=== PATIENT | male | born 1975 | race Two or more races ===

== ENCOUNTER 2018-03-30 11:57 | Inpatient (IN) | payer OTHER ==
[~2018-03-30] VITALS: Ht 170.2 cm; Wt 73.1 kg
[2018-03-30 12:12] VITALS: Ht 170.2 cm; Wt 73.1 kg
[2018-03-30 13:15] LABS: PLATELET COUNT 190 x10^3mcL (130-400)
[2018-03-30 13:16] LABS: RED CELL DISTRIBUTION WIDTH 15.9 % (11.5-14.5)
[2018-03-30 13:39] LABS: BAND NEUTROPHIL 1 % (0-10); BASOPHIL 0 % (0-2); MONOCYTE 10 % (0-7); SEGMENTED NEUTROPHILS 68 % (37-75); rbc morphology (normal/abnorm) ABNORMAL (NORMAL); tear drop cell (dacryocyte) 1+
[2018-03-30 13:41] LABS: target cell (codocyte) 1+
[2018-03-30 13:42] LABS: CARBON DIOXIDE 29.1 mmol/L (21-32); CHLORIDE SERUM 102 mmol/L (98-107); CREATININE SERUM 1.1 mg/dL (0.7-1.3); GFR1 > 60 mL/min; GLUCOSE SERUM 89 mg/dL (74-106); PLATELET MORPHOLOGY LARGE PLATELET SEEN; POTASSIUM SERUM 3.4 mmol/L (3.5-5.1); SODIUM SERUM 136 mmol/L (136-145)
[2018-03-30 13:54] LABS: ALKALINE PHOSPHATASE 423 U/L (46-116); ALT/SGPT 160 U/L (16-63); AMYLASE 45 U/L (25-115); AST/SGOT 197 U/L (15-37); BILIRUBIN TOTAL 7.4 mg/dL (0.20-1.00); LIPASE 88 IU/L (73-393)
[2018-03-30 14:08] LABS: ALBUMIN 1.9 g/dL (3.4-5.0); TOTAL PROTEIN, SERUM 5.5 g/dL (6.4-8.2)
[2018-03-30 15:43] LABS: UA SPECIFIC GRAVITY 1.025 (1.005-1.035); microscopic required? YES; urine erythrocyte NEGATIVE (NEGATIVE)
[2018-03-30 15:52] LABS: AMPHETAMINE QUAL UR NONE DETECTED (See below)
[2018-03-30 16:18] VITALS: BP 118/71
[2018-03-30 18:00] LABS: MAGNESIUM 2.2 mg/dL (1.8-2.4); PHOSPHOROUS 2.1 mg/dL (2.5-4.9)
[2018-03-30 18:06] LABS: CHOLESTEROL/HDL RATIO 24.1
[2018-03-30 20:38] VITALS: BP 108/72
[2018-03-31 05:05] VITALS: BP 102/62
[2018-03-31 06:22] LABS: PLATELET COUNT 175 x10^3mcL (130-400)
[2018-03-31 06:47] LABS: ALBUMIN 1.7 g/dL (3.4-5.0); ALKALINE PHOSPHATASE 345 U/L (46-116); ALT/SGPT 138 U/L (16-63); AST/SGOT 163 U/L (15-37); CALCIUM 7.7 mg/dL (8.5-10.1); CARBON DIOXIDE 29.8 mmol/L (21-32); CHLORIDE SERUM 102 mmol/L (98-107); GFR1 > 60 mL/min; GLUCOSE SERUM 83 mg/dL (74-106); PHOSPHOROUS 2.2 mg/dL (2.5-4.9); POTASSIUM SERUM 4.4 mmol/L (3.5-5.1); SODIUM SERUM 136 mmol/L (136-145); TOTAL PROTEIN, SERUM 5.1 g/dL (6.4-8.2)
[2018-03-31 07:30] LABS: RED CELL DISTRIBUTION WIDTH 16.2 % (11.5-14.5)
[2018-03-31 09:43] VITALS: BP 96/58
[2018-03-31 11:21] LABS: ATYPICAL LYMPH 9 %; BAND NEUTROPHIL 0 % (0-10); BASOPHIL 1 % (0-2); MONOCYTE 14 % (0-7); SEGMENTED NEUTROPHILS 62 % (37-75)
[2018-03-31 11:23] LABS: PLATELET MORPHOLOGY PLATELETS DECREASED; rbc morphology (normal/abnorm) ABNORMAL (NORMAL); target cell (codocyte) 2+
[2018-03-31 13:15] VITALS: BP 106/68
[2018-03-31 17:40] VITALS: BP 111/55
[2018-03-31 20:43] VITALS: BP 109/66
[2018-04-01 05:33] VITALS: BP 96/55
[2018-04-01 06:39] LABS: ALKALINE PHOSPHATASE 311 U/L (46-116); ALT/SGPT 105 U/L (16-63); AST/SGOT 148 U/L (15-37); BILIRUBIN TOTAL 4.05 mg/dL (0.20-1.00); CALCIUM 8.1 mg/dL (8.5-10.1); CARBON DIOXIDE 30.3 mmol/L (21-32); CHLORIDE SERUM 103 mmol/L (98-107); CREATININE SERUM 0.9 mg/dL (0.7-1.3); GFR1 > 60 mL/min; GLUCOSE SERUM 88 mg/dL (74-106); POTASSIUM SERUM 4.6 mmol/L (3.5-5.1); SODIUM SERUM 135 mmol/L (136-145)
[2018-04-01 06:44] LABS: TOTAL PROTEIN, SERUM 5.6 g/dL (6.4-8.2)
[2018-04-01 06:49] LABS: PHOSPHOROUS 2.8 mg/dL (2.5-4.9)
[2018-04-01 07:25] LABS: PLATELET COUNT 183 x10^3mcL (130-400)
[2018-04-01] MEDS ORDERED: ALD50 PO (08:07)
[2018-04-01] MEDS ORDERED: FUROSEMIDE40 MG PO (08:08)
[2018-04-01] MEDS ORDERED: ATIVAN0.5 M1 PO (08:10)
[2018-04-01 08:28] LABS: RED CELL DISTRIBUTION WIDTH 16.1 % (11.5-14.5)
[2018-04-01 09:06] VITALS: BP 93/60
[2018-04-01 11:06] VITALS: BP 93/60
[2018-04-01 11:52] LABS: MONOCYTE 11 % (0-7); SEGMENTED NEUTROPHILS 65 % (37-75)
[2018-04-01 11:53] LABS: ATYPICAL LYMPH 2 %; BAND NEUTROPHIL 1 % (0-10); BASOPHIL 0 % (0-2); PLATELET MORPHOLOGY PLATELETS NORMAL; rbc morphology (normal/abnorm) ABNORMAL (NORMAL); target cell (codocyte) 1+
[2018-04-01 11:54] LABS: tear drop cell (dacryocyte) 1+
[2018-04-01 12:26] VITALS: BP 110/71
== END 2018-04-01 13:50 | disposition home or self-care (01) | DRG 280 ==
LOC: ED 11:57 → MU 15:28 → DU 15:28
PROVIDERS: Emergency Medicine; Internal Medicine
DX: K70.11 Alcoholic hepatitis with ascites (principal); N17.0 Acute kidney failure with tubular necrosis; E43 Unspecified severe protein-calorie malnutrition; E11.65 Type 2 diabetes mellitus with hyperglycemia; E83.39 Other disorders of phosphorus metabolism; E83.51 Hypocalcemia; F10.20 Alcohol dependence, uncomplicated; E87.6 Hypokalemia; R74.0 Nonspecific elevation of levels of transaminase and lactic acid dehydrogenase [LDH]; E80.6 Other disorders of bilirubin metabolism; E78.5 Hyperlipidemia, unspecified; Y90.9 Presence of alcohol in blood, level not specified; R80.9 Proteinuria, unspecified; Z68.25 Body mass index [BMI] 25.0-25.9, adult; Z71.41 Alcohol abuse counseling and surveillance of alcoholic
CPT/HCPCS: 36600; G0480; J1940; J2270; J7030; P9047; Q0092

== ENCOUNTER 2019-09-25 14:24 | Emergency (ER) | payer OTHER ==
[~2019-09-25] VITALS: Ht 170.2 cm; Wt 75.3 kg
[~2019-09-25 14:24] MED LIST: ALD50 PO; ATIVAN0.5 M1 PO; FUROSEMIDE40 MG PO
[2019-09-25 14:33] VITALS: Ht 170.2 cm; Wt 75.3 kg
[2019-09-25 15:23] LABS: BASOPHIL % 0.6 % (0-2); PLATELET COUNT 220 x10^3mcL (130-400)
[2019-09-25 15:24] LABS: RED CELL DISTRIBUTION WIDTH 14.9 % (11.5-14.5)
[2019-09-25 15:53] LABS: CALCIUM 9.2 mg/dL (8.5-10.1); CARBON DIOXIDE 26.1 mmol/L (21-32); CHLORIDE SERUM 104 mmol/L (98-107); CREATININE SERUM 0.8 mg/dL (0.7-1.3); GFR1 > 60 mL/min; GLUCOSE SERUM 150 mg/dL (74-106); SODIUM SERUM 142 mmol/L (136-145)
[2019-09-25 15:58] LABS: ALBUMIN 3.8 g/dL (3.4-5.0); ALKALINE PHOSPHATASE 174 U/L (46-116); ALT/SGPT 191 U/L (16-63); AMYLASE 82 U/L (25-115); AST/SGOT 337 U/L (15-37); BILIRUBIN TOTAL 1.2 mg/dL (0.20-1.00); LIPASE 130 IU/L (73-393); TOTAL PROTEIN, SERUM 7.9 g/dL (6.4-8.2)
[2019-09-25 17:34] VITALS: BP 159/94
== END 2019-09-25 17:35 | disposition home or self-care (01) ==
LOC: ED 14:24
PROVIDERS: Emergency Medicine
DX: K76.89 Other specified diseases of liver (principal); F10.10 Alcohol abuse, uncomplicated
CPT/HCPCS: J1885; J7030